=== PATIENT | female | born 1945 | race Caucasian/White ===

== ENCOUNTER → 2017-05-21 | Outpatient (CLI) | payer OTHER ==
[~2017-05-21] MED LIST: ALTACE10 M1 PO; ASPIR 8181 MG PO; ASPIRIN325 PO; AZOR 5-40 MG T1 EACH PO; BACLOFEN 10 MG10 MG PO; BENICAR40 MG PO; CALCIUM 600 +1 EAC1 PO; CELEXA 10 MG TA10 M1 PO; CRESTOR40 MG PO; ENABLEX15 MG PO; FEMHRT 1-5 TAB1 EACH PO; FISH OIL + VIT1 EACH PO; GLUCOSAMINE &1 EACH PO; KEFLEX500 MG PO; LANSOPRAZOLE30 MG PO; LEVAQUIN 500 M500 M2 PO; MOBIC7.5 MG PO; MULTIVITAMINS PO; NABUMETONE 500500 M1 PO; NORCO 10-325 T1 EACH; NORVASC5 MG PO; PREDNISONE 10 M10 MG PO; PREVACID 30MG C30 M1 PO; ROBAXIN 750 MG750 M1; TESSALON PERLE100 MG PO; TRAMADOL 50 MG50 MG PO; VENTOLIN HFA 1818 GM INH; VESICARE10 M1 PO
== END ==
LOC: CAT 10:24
DX: R91.1 Solitary pulmonary nodule (principal)

== ENCOUNTER 2017-07-22 23:15 | Inpatient (IN) | payer OTHER ==
[~2017-07-22] VITALS: Ht 167.6 cm; Wt 79.4 kg
--- NOTE | ~2017-07-22 | EKG ---
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: [facility] : 1945 Requested By: Braulio Parsons Order Number: [id number] MD: Lawrence Jimenez Measurements Intervals [place] Rate: 68 P: 71 ID: [id number] QRS: 11 QRSD: 112 T: 41 QT: 407 QTc: 433 Interpretive Statements Sinus rhythm Biatrial enlargement Left ventricular hypertrophy Baseline wander in lead(s) V3 Compared to ECG 08/22/2015 07:53:44 Atrial abnormality now present Left ventricular hypertrophy now present Sinus bradycardia no longer present Electronically Signed On 07-23-2017 8:13:18 REHAB NURSE by Lawrence Jimenez [email or web address] <ELECTRONICALLY SIGNED> By: Lawrence Jimenez MD 07/23/17 0813 0023 0023 Lawrence Jimenez MD /EPI
[2017-07-22 23:16] VITALS: BP 196/161
[2017-07-23 00:10] LABS: HEMATOCRIT 44.5 % (37.0-47.0); HEMOGLOBIN 15.2 gm/dL (12.0-15.0); MCH 32.9 pg (26.0-34.0); MCHC 34.2 g/dL (28.0-37.0); MCV 96.2 fL (80.0-100.0); RBC 4.63 mil/uL (4.20-5.00); RDW 12.9 % (10.5-14.5); WBC 6.3 thou/uL (4.0-11.0)
[2017-07-23 00:13] LABS: ANION GAP 7 mmol/L (7-16); BUN 21 mg/dL (7-18); CALCIUM 9.4 mg/dL (8.5-10.1); CHLORIDE 96 mmol/L (98-107); CO2 31 mmol/L (21-32); CREATININE 0.8 mg/dL (0.6-1.0); GLUCOSE 105 mg/dL (74-106); POTASSIUM 3.9 mmol/L (3.5-5.1); SODIUM 134 mmol/L (136-145)
[2017-07-23 00:22] LABS: TROPONIN-I < 0.04 ng/mL (<0.06)
[2017-07-23] MEDS ORDERED: BYSTOLIC 5 MG5 M1 PO (01:30)
[2017-07-23] MEDS ORDERED: EDARBYCLOR 40-1 EACH PO (01:31)
[2017-07-23] MEDS ORDERED: VESICARE10 M1 PO (01:31)
[2017-07-23] MEDS ORDERED: STIOLTO RESPIMAT4 GM INH (01:32)
[2017-07-23] MEDS ORDERED: FISH OIL 1,001000 M2 PO (01:33)
[2017-07-23] MEDS ORDERED: PLAVIX 75 MG TA75 M1 PO (01:34)
[2017-07-23 01:41] VITALS: BP 128/64
[2017-07-23 01:59] VITALS: BP 169/75
[2017-07-23 05:38] LABS: CALCIUM 9.6 mg/dL (8.5-10.1); CREATININE 0.9 mg/dL (0.6-1.0); POTASSIUM 3.2 mmol/L (3.5-5.1)
[2017-07-23 08:08] VITALS: BP 168/83
[2017-07-23 11:45] VITALS: BP 144/66
[2017-07-23 15:20] VITALS: BP 153/67
[2017-07-24 04:00] VITALS: BP 151/64
[2017-07-24] MEDS ORDERED: PREDNISONE 20 M20 MG PO (10:22)
[2017-07-24 11:32] VITALS: BP 151/64
== END 2017-07-24 12:20 | disposition home or self-care (01) | DRG 191 ==
LOC: ER 23:15 → 4S 07-23 01:08 → EROBS 07-23 01:08 → 4S 07-23 01:44 → ENTRNSPT 07-24 12:24 → EDTRNSPTSTS 07-24 12:27 → CMPTRNSPT 07-24 12:31
PROVIDERS: Emergency Medicine; Nurse Practitioner Family
DX: J44.1 Chronic obstructive pulmonary disease with (acute) exacerbation (principal); E87.1 Hypo-osmolality and hyponatremia; K21.9 Gastro-esophageal reflux disease without esophagitis; E78.00 Pure hypercholesterolemia, unspecified; M19.90 Unspecified osteoarthritis, unspecified site; F32.9 Major depressive disorder, single episode, unspecified; I10 Essential (primary) hypertension; I25.10 Atherosclerotic heart disease of native coronary artery without angina pectoris; E78.5 Hyperlipidemia, unspecified; Z79.899 Other long term (current) drug therapy; Z88.5 Allergy status to narcotic agent; Z95.5 Presence of coronary angioplasty implant and graft; Z90.49 Acquired absence of other specified parts of digestive tract; Z87.891 Personal history of nicotine dependence
CPT/HCPCS: 10100

== ENCOUNTER → 2017-09-04 | Outpatient (CLI) | payer OTHER ==
[~2017-09-04] MED LIST changes: +BYSTOLIC 5 MG5 M1 PO; +EDARBYCLOR 40-1 EACH PO; +FISH OIL 1,001000 M2 PO; +PLAVIX 75 MG TA75 M1 PO; +PREDNISONE 20 M20 MG PO; +STIOLTO RESPIMAT4 GM INH
[2017-09-04 10:44] LABS: PCO2 38.2 mmHg (35.0-45.0); PO2 59.7 mmHg (80.0-100.0); pH 7.434 (7.360-7.450); sO2 91.7 % (92.0-98.0)
== END ==
LOC: RAD 08:34 → PUL 08:34
PROVIDERS: Internal Medicine Pulmonary Disease
DX: R06.02 Shortness of breath (principal); Z88.5 Allergy status to narcotic agent

== ENCOUNTER → 2018-06-10 | Outpatient (CLI) | payer OTHER | LOC: CAT 11:20 | DX: J98.4 Other disorders of lung (principal); I25.10 Atherosclerotic heart disease of native coronary artery without angina pectoris; M40.294 Other kyphosis, thoracic region ==

== ENCOUNTER → 2018-12-31 | Outpatient (CLI) | payer OTHER | LOC: RAD 13:58 | DX: Z12.31 Encounter for screening mammogram for malignant neoplasm of breast (principal) ==

== ENCOUNTER → 2021-01-18 | Outpatient (CLI) | payer OTHER | LOC: SJCVC 14:19 | PROVIDERS: ATTEND Internal Medicine Cardiovascular Disease | DX: I25.10 Atherosclerotic heart disease of native coronary artery without angina pectoris (principal); R00.1 Bradycardia, unspecified; E78.00 Pure hypercholesterolemia, unspecified; I70.1 Atherosclerosis of renal artery; I65.23 Occlusion and stenosis of bilateral carotid arteries; I73.9 Peripheral vascular disease, unspecified; J44.9 Chronic obstructive pulmonary disease, unspecified; K21.9 Gastro-esophageal reflux disease without esophagitis; I10 Essential (primary) hypertension; Z95.5 Presence of coronary angioplasty implant and graft; Z90.49 Acquired absence of other specified parts of digestive tract; Z95.828 Presence of other vascular implants and grafts; Z88.5 Allergy status to narcotic agent; Z79.899 Other long term (current) drug therapy; Z87.891 Personal history of nicotine dependence ==

== ENCOUNTER → 2021-03-19 | Outpatient (CLI) | payer OTHER | LOC: SJCVCIMAG 07:33 | PROVIDERS: ATTEND Internal Medicine Cardiovascular Disease | DX: I08.1 Rheumatic disorders of both mitral and tricuspid valves (principal); I10 Essential (primary) hypertension; J44.9 Chronic obstructive pulmonary disease, unspecified; I25.10 Atherosclerotic heart disease of native coronary artery without angina pectoris; M79.605 Pain in left leg; M79.604 Pain in right leg ==

== ENCOUNTER → 2021-08-20 | Outpatient (CLI) | payer OTHER | LOC: RAD 14:28 | PROVIDERS: ATTEND Internal Medicine | DX: J44.9 Chronic obstructive pulmonary disease, unspecified (principal); R91.8 Other nonspecific abnormal finding of lung field ==